=== PATIENT | male | born 1970 | race Caucasian/White ===

== ENCOUNTER 2020-02-23 14:33 | Outpatient (CLI) | payer BC, SELFPAY ==
[2020-02-23 15:09] LABS: SARS-CoV-2 Ag Negative (Negative)
== END 2020-02-23 14:34 | disposition home or self-care (01) ==
PROVIDERS: PCP Family Medicine
DX: Z01.818 Encounter for other preprocedural examination (principal); Z20.828 Contact with and (suspected) exposure to other viral communicable diseases
CPT/HCPCS: 87426